=== PATIENT | male | born 1985 | race Caucasian/White ===

== ENCOUNTER 2017-01-02 14:41 | Emergency (ER) | payer SELFPAY ==
[2017-01-02 14:45] VITALS: BP 127/77
[2017-01-02] MEDS ORDERED: CEPHALEXIN 500 MG CAPSULE PO ONE (15:02)
[2017-01-02] MEDS ORDERED: ACETAMINOPHEN 325 MG TABLET PO ONE (15:02)
--- NOTE | 2017-01-02 15:11 | ER Document Report ---
ED Skin Rash/Insect Bite/Abscs - General Chief Complaint: Abscess Stated Complaint: POSSIBLE INSECT BITE Time Seen by Provider: 01/02/17 14:48 TRAVEL OUTSIDE OF THE [place] IN LAST 30 DAYS: No - HPI Patient complains to provider of: Tender/swollen area Onset: Last week Onset/Duration: Gradual Quality of pain: Achy Severity: Mild Skin Character: Abscess, Blanching, Drainage, Erythema Skin Temperature: Hot Quality of rash: Painful Identify cause: No Similar symptoms previously: No Recently seen / treated by doctor: No - Related Data Allergies/Adverse Reactions: No Known Allergies Allergy (Verified 01/02/17 14:57) Past Medical History - Social History Smoking Status: Current Every Day Smoker Frequency of alcohol use: Social Drug Abuse: Marijuana Family History: Reviewed & Not Pertinent Renal/ Medical History: Denies: Hx Peritoneal Dialysis Psychiatric Medical History: Reports: Hx Anxiety - Immunizations Hx Diphtheria, Pertussis, Tetanus Vaccination: Yes Review of Systems - Review of Systems Constitutional: No symptoms reported Musculoskeletal: No symptoms reported Skin: See HPI -: Yes All other systems reviewed and negative Physical Exam - Vital signs Vitals: Temp Pulse Resp BP Pulse Ox 97.9 F 84 16 127/77 H 99 01/02/17 14:42 01/02/17 14:42 01/02/17 14:42 01/02/17 14:42 01/02/17 14:42 - General General appearance: Appears well, Alert In distress: None - Extremities Shoulder: Normal, Nontender, Other - cellulitic area with purulent drainage and scabbing, erythema, induration - Skin Skin irregularity: Abscess - [id number] anterior right shoulder Course - Re-evaluation Re-evalutation: 01/02/17 15:08 Patient is a 31-year-old male who is hemodynamically stable, no distress afebrile. Mild cellulitic area with underlying abscess drained at the bedside for approximately 5 cc of present material. Patient initiated on antibiotics and told to follow-up with primary care in 3-5 days. Patient expressed understanding and agrees with plan. - Vital Signs Vital signs: Temp Pulse Resp BP Pulse Ox 97.9 F 84 16 127/77 H 99 01/02/17 14:42 01/02/17 14:42 01/02/17 14:42 01/02/17 14:42 01/02/17 14:42 Discharge - Discharge Clinical Impression: Cellulitis Qualifiers: Site of cellulitis: extremity Site of cellulitis of extremity: upper extremity Laterality: right Qualified Code(s): L03.113 - Cellulitis of right upper limb Condition: Good Disposition: HOME, SELF-CARE Instructions: Abscess ([facility]), Post Incision and Drainage, Cephalexin ([facility]), Cellulitis ([facility]) Prescriptions: Cephalexin Monohydrate [Keflex 500 mg Capsule] 500 mg PO QID #20 capsule Forms: Return to Work
== END 2017-01-02 15:30 | disposition home or self-care (01) ==
LOC: ER 14:41
PROC: 0H9HXZZ Drainage of Right Upper Leg Skin, External Approach (ICD-10-PCS; principal; 2017-01-02)
DX: L03.113 Cellulitis of right upper limb (principal); F17.200 Nicotine dependence, unspecified, uncomplicated
CPT/HCPCS: 87070; 87075; 87077; 87186; 87205; 99283

== ENCOUNTER 2017-01-10 23:46 | Emergency (ER) | payer SELFPAY ==
[2017-01-11 00:01] VITALS: BP 130/79
[2017-01-11] MEDS ORDERED: LIDOCAINE 1%/EPINEPHRINE INJ 20 ML VIAL INJ ONE (00:10)
[2017-01-11] MEDS ORDERED: DOXYCYCLINE HYCLATE 100 MG TABLET PO ONE (00:17)
[2017-01-11] MEDS ORDERED: LIDOCAINE 1% INJ-PF (10 MG/ML) 30 ML SDV ONE (00:18)
--- NOTE | 2017-01-11 00:22 | ER Document Report ---
HPI - HPI Pain Level: 3 Notes: Patient is a 31-year-old male who presents the ED complaining of an abscess to his right arm 4 days. Patient states that he was here last week and had an I& D performed for an abscess on his right shoulder. 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 Patient states that he has had some purulent discharge from the abscess on his arm today. He is still eating and drinking without any difficulties. He has not noticed any red streaks or fever. Denies any headache, fever, URI, sore throat , chest pain, palpitations, syncope, cough, shortness of breath, wheeze, dyspnea , abdominal pain, nausea/vomiting/diarrhea. Denies any drug allergies. + smoking. Denies elicit/IV drug use. - ROS Notes: REVIEW OF SYSTEMS: CONSTITUTIONAL : Denies fever, chills, or sweats. Denies recent illness. EENT: Denies eye, ear, throat, or mouth pain or symptoms. Denies nasal or sinus congestion or discharge. Denies throat, tongue, or mouth swelling or difficulty swallowing. CARDIOVASCULAR: Denies chest pain. Denies palpitations or racing or irregular heart beat. Denies ankle edema. RESPIRATORY: Denies cough, cold, or chest congestion. Denies shortness of breath, difficulty breathing, or wheezing. GASTROINTESTINAL: Denies abdominal pain or distention. Denies nausea, vomiting , or diarrhea. Denies blood in vomitus, stools, or per rectum. Denies black, tarry stools. Denies constipation. GENITOURINARY: Denies difficulty urinating, painful urination, burning, frequency, blood in urine, or discharge. MUSCULOSKELETAL: Denies back or neck pain or stiffness. Denies joint pain or swelling. SKIN: see hpi NEUROLOGICAL: Denies confusion or altered mental status. Denies passing out or loss of consciousness. Denies dizziness or lightheadedness. Denies headache. Denies weakness or paralysis or loss of use of either side. Denies problems with gait or speech. Denies sensory loss, numbness, or tingling. ALL OTHER SYSTEMS REVIEWED AND NEGATIVE. Dictation was performed using [employer] voice recognition software Past Medical History - Social History Smoking Status: Current Every Day Smoker Family History: Reviewed & Not Pertinent Renal/ Medical History: Denies: Hx Peritoneal Dialysis Psychiatric Medical History: Reports: Hx Anxiety - Immunizations Hx Diphtheria, Pertussis, Tetanus Vaccination: Yes Vertical Provider Document - CONSTITUTIONAL Agree With Documented VS: Yes Notes: PHYSICAL EXAMINATION: GENERAL: Well-appearing, well-nourished and in no acute distress. NECK: Normal range of motion, supple without lymphadenopathy LUNGS: Breath sounds clear to auscultation bilaterally and equal. No wheezes rales or rhonchi. HEART: Regular rate and rhythm without murmurs, rubs, gallops. Musculoskeletal: Rt UE: FROM to passive/active. Strength 5+/5. Extremities: No cyanosis, clubbing, or edema b/l. Peripheral pulses 2+. Capillary refill less than 3 seconds. NEUROLOGICAL: Cranial nerves grossly intact. Normal speech, normal gait. Normal sensory, motor exams PSYCH: Normal mood, normal affect. SKIN: + 3-3.5cm abscess noted to the rt anterolateral arm. No discharge. + induration and tenderness. No lymphangitis or prox lymphadenopathy. - INFECTION CONTROL TRAVEL OUTSIDE OF THE [place] IN LAST 30 DAYS: No - RESPIRATORY O2 Sat by Pulse Oximetry: 98 Course - Re-evaluation Re-evalutation: 01/11/17 00:58 Patient is an afebrile, well-hydrated, 31-year-old male who presents the ED with an abscess to his right arm. Vitals are stable. PE otherwise unremarkable. I&D performed successfully without any complications. Patient did experience a less than 5 second vasovagal episode after the procedure was completed. Patient already had his head rested on the bed at the time of the incident. No fall or injury. Patient was then laid up on the bed and given 8 mg Zofran along with water. Wound cultures pending. Wound dressing placed. Doxycycline 100 mg given p.o. today. I will send him home with enough tablets to get to Thursday when he gets paid so he can fill out the rest of the prescription. Wound instructions reviewed. Conservative measures otherwise for symptoms. Recheck/establish with a PCM this week. Return to the ED with any worsening/concerning symptoms otherwise as reviewed discharge. Patient is in agreement. 01/11/17 01:15 Pt is feeling much better and is stable for discharge. No new concerns or complaints. Pt's gf is here with him and will drive him home. - Vital Signs Vital signs: Temp Pulse Resp BP Pulse Ox 98.1 F 78 18 130/79 H 98 01/10/17 23:59 01/10/17 23:59 01/10/17 23:59 01/10/17 23:59 01/10/17 23:59 Procedures - Incision and Drainage Right Arm Time completed: 12:30 Type: Simple Anesthetic type: 1% Lidocaine mL's of anesthetic: 6 Blade size: 11 I&D procedure: Shurclens applied, Iodoform packing placed, Sterile dressing applied Incision Method: Incision made by scalpel Amount/type of drainage: purulent/bloody 3-4cc Notes: 01/11/17 00:45 Incision and drainage procedure, risks, benefits reviewed with the patient. Verbal and written consent obtained. Sterile technique utilized. The area was extensively cleansed utilizing shurclens and saline. A 21-gauge needle was utilized to anesthetize the area using 6 mL's of 1% lidocaine without epinephrine. Once adequate anesthesia was provided, a #11 scalpel was utilized to make a 2- 2.5 cm elliptical incision at the site of the abscess. Moderate amounts of purulent material was expressed. Wound culture obtained. Hemostats were then utilized to break up any remaining muscular pockets within the abscess. The wound was then lightly packed using 1/4" iodoform. Wound dressing and triple antibiotic placed. Minimal blood loss (approximately 2-3 cc's). Patient tolerated procedure well. No complications. Discharge - Discharge Clinical Impression: Abscess Condition: Stable Disposition: HOME, SELF-CARE Instructions: Abscess ([facility]), Doxycycline ([facility]), Post Incision and Drainage, Follow-Up Care ([facility]) Additional Instructions: Do not shower or bathe for 24 hours. After 24 hours she may shower but no submersion of the wound under water. Keep the original dressing on the wound for 24 hours unless the drainage stops through. Change the dressing daily thereafter and use a small amount of triple antibiotic ointment over the open wound. Return to the ED and/or your PCM in 2-3 days for recheck and continue direction for wound packing. Monitor for any signs of worsening pain or redness , streaks, and/or fever. Return to the ED if noticing any of the above symptoms or as needed. Take medications as directed. Prescriptions: Doxycycline Hyclate 100 mg PO BID #10 capsule Forms: Elevated Blood Pressure, Smoking Cessation Education Referrals: [facility] [Provider Group] - Follow up as needed [facility] [Provider Group] - Follow up as needed
[2017-01-11] MEDS ORDERED: ONDANSETRON 4 MG TAB.RAPDIS ONE (01:00)
== END 2017-01-11 02:36 | disposition home or self-care (01) ==
LOC: ER 23:46
PROC: 0H9BXZZ Drainage of Right Upper Arm Skin, External Approach (ICD-10-PCS; principal; 2017-01-10)
DX: L02.413 Cutaneous abscess of right upper limb (principal); F17.200 Nicotine dependence, unspecified, uncomplicated
CPT/HCPCS: 99283; 87070; 87205; 87075; 87077; 87186; 10060; S0119; J3490 ×2

== ENCOUNTER 2017-02-24 17:33 | Emergency (ER) | payer SELFPAY ==
[2017-02-24 17:40] VITALS: BP 99/79
[2017-02-24] MEDS ORDERED: KETOROLAC TROMETHAMINE INJ/PF 30 MG/1 ML SDV IV ONE (18:23)
[2017-02-24] MEDS ORDERED: CLINDAMYCIN 600 MG/D5W RTU 600 MG/50 ML RTUPB IV ONE (18:23)
--- NOTE | 2017-02-24 18:29 | ER Document Report ---
HPI - HPI Patient complains to provider of: Abscess right arm Onset: Other Onset/Duration: Gradual Quality of pain: Throbbing Severity: Moderate Pain Level: 4 Context: Patient has a history of abscesses. Patient states he has been picking at lesions on his arm and area to right forearm is red and swollen. Patient states he was able to squeeze small amount of pus out of it yesterday. He states it feels better today and is here for antibiotics. Patient denies fever. He also denies a history of MRSA Associated Symptoms: None Exacerbated by: Denies Relieved by: Denies Similar symptoms previously: Yes Recently seen / treated by doctor: No - ROS ROS below otherwise negative: Yes Systems Reviewed and Negative: Yes All other systems reviewed and negative - CONSTITUTIONAL Constitutional: DENIES: Fever - EENT EENT: DENIES: Congestion - NEURO Neurology: DENIES: Headache - CARDIOVASCULAR Cardiovascular: DENIES: Chest pain - RESPIRATORY Respiratory: DENIES: Trouble Breathing - GASTROINTESTINAL Gastrointestinal: DENIES: Abdominal Pain - URINARY Urinary: DENIES: Dysuria - Prescriptions a 1 and a cold a - MUSCULOSKELETAL Musculoskeletal: REPORTS: Extremity pain - right forearm - DERM Skin Color: Erythema Skin Problems: Rash Past Medical History - General Information source: Patient - Social History Smoking Status: Current Every Day Smoker Cigarette use (# per day): Yes Frequency of alcohol use: Occasional Drug Abuse: Marijuana Lives with: Family Family History: Reviewed & Not Pertinent Patient has suicidal ideation: No Patient has homicidal ideation: No Psychiatric Medical History: Reports: Hx Anxiety Surgical Hx: Negative - Immunizations Hx Diphtheria, Pertussis, Tetanus Vaccination: Yes Vertical Provider Document - CONSTITUTIONAL Agree With Documented VS: Yes Exam Limitations: No Limitations General Appearance: WD/WN, No Apparent Distress - INFECTION CONTROL TRAVEL OUTSIDE OF THE [place] IN LAST 30 DAYS: No - HEENT HEENT: Atraumatic, Normocephalic - RESPIRATORY Respiratory: Breath Sounds Normal, No Respiratory Distress O2 Sat by Pulse Oximetry: 98 - CARDIOVASCULAR Cardiovascular: Regular Rate, Regular Rhythm - GI/ABDOMEN Gastrointestinal: Abdomen Soft - MUSCULOSKELETAL/EXTREMETIES Musculoskeletal/Extremeties: MAEW, Tender, Edema - In her right forearm. negative: Eccymosis - NEURO Level of Consciousness: Awake, Alert, Appropriate - DERM Integumentary: Warm, Dry, Abscess Notes: Hard, nonfluctuant red area to inner right forearm with surrounding erythema. Course - Vital Signs Vital signs: Temp Pulse Resp BP Pulse Ox 98.9 F 92 16 99/79 L 98 02/24/17 17:37 02/24/17 17:37 02/24/17 17:37 02/24/17 17:37 02/24/17 17:37 Discharge - Discharge Clinical Impression: Cellulitis of right forearm Condition: Good Disposition: HOME, SELF-CARE Additional Instructions: Take all antibiotics as prescribed Warm compresses to area ibuprofen as needed for pain. Return if no improvement in 48 hours Prescriptions: Cephalexin [Cephalexin 500 MG Capsule] 1 cap PO QID #28 capsule Sulfamethoxazole/Trimethoprim [Septra-Ds 800-160 mg Tablet] 1 tab PO BID #20 tablet Forms: Return to Work
== END 2017-02-24 19:50 | disposition home or self-care (01) ==
LOC: ER 17:33
DX: L02.413 Cutaneous abscess of right upper limb (principal); F17.210 Nicotine dependence, cigarettes, uncomplicated
CPT/HCPCS: 99283; 96375; 96365; J1885